=== PATIENT | female | born 1975 | race Caucasian/White ===

== ENCOUNTER → 2023-06-06 16:07 | Outpatient (CLI) | payer BC, OTHER, SELFPAY ==
--- NOTE | ~2023-06-06 | MM_ITS ---
EXAMINATION: MM screening yg BI w jose HISTORY: Screening TECHNIQUE: Craniocaudal and mediolateral oblique 3-D tomosynthesis images were obtained and synthetic 2-D images were generated. CAD analysis was submitted and interpreted. COMPARISON: No prior mammogram is available for comparison at this institution. BREAST PARENCHYMAL COMPOSITION: Not dense: There are scattered areas of fibroglandular density. FINDINGS: There are asymmetries centered in the upper outer quadrant of the right breast. There is no mammographic evidence for malignancy in the left breast. IMPRESSION: 1. Right breast asymmetries. 2. Additional mammographic views and possible breast ultrasound are recommended. BI-RADS Category 0: Incomplete: Needs additional imaging evaluation. Reviewed, dictated and finalized at location A. CHASER IMPRESSION: 1. Right breast asymmetries. 2. Additional mammographic views and possible breast ultrasound are recommended . BI-RADS Category 0: Incomplete: Needs additional imaging evaluation.
== END ==
PROVIDERS: PCP Nurse Practitioner; Visit Provider Nurse Practitioner
DX: Z12.31 Encounter for screening mammogram for malignant neoplasm of breast (principal); R92.8 Other abnormal and inconclusive findings on diagnostic imaging of breast
CPT/HCPCS: 77063; 77067

== ENCOUNTER → 2023-06-15 08:48 | Outpatient (CLI) | payer BC, OTHER, SELFPAY ==
--- NOTE | ~2023-06-15 | MMUS_ITS ---
EXAMINATION: MM diagnostic yg RT w jose, US breast RT complete HISTORY: Follow-up right breast asymmetry TECHNIQUE: Additional 3-D tomosynthesis images of the right breast were performed and synthetic 2-D i mages were generated. CAD analysis was submitted and interpreted. High resolution complete right dustin st ultrasound was performed. COMPARISON: 06/06/2023 BREAST PARENCHYMAL COMPOSITION: Dense: The breasts are heterogeneously dense, which may obscure small masses FINDINGS: MAMMOGRAPHIC FINDINGS: There is an ill-defined irregular shaped mass in the upper outer quadrant of the right breast which i s obscured by fibroglandular tissue. There are no suspicious calcifications. ULTRASOUND: Complete US of all 4 quadrants of the right breast and retroareolar region was reviewed. At 11:00, 5 cm from the nipple there is an irregular shaped hypoechoic mass with posterior shadowing and internal vascularity. The margins are indistinct, although the mass measures approximately 1.5 x 1.3 cm with antiparallel configuration. IMPRESSION: 1. Complex heterogeneous irregular shaped vascular mass of the right breast with posterior shadowing located at 11:00, 5 cm from the nipple corresponding to the mammographic abnormality. 2. Ultrasound-guided right breast biopsy recommended. BI-RADS category 4, suspicious findings. Reviewed, dictated and finalized at location A. JOCKEY IMPRESSION: 1. Complex heterogeneous irregular shaped vascular mass of the right breast wit h posterior shadowing located at 11:00, 5 cm from the nipple corresponding to t he mammographic abnormality. 2. Ultrasound-guided right breast biopsy recommended. BI-RADS category 4, suspicious findings.
== END ==
PROVIDERS: PCP Obstetrics & Gynecology Gynecology; Visit Provider Obstetrics & Gynecology Gynecology
DX: R92.8 Other abnormal and inconclusive findings on diagnostic imaging of breast (principal)
CPT/HCPCS: 76641; 77061; 77065; G0279

== ENCOUNTER 2023-11-06 01:57 | Day surgery (SDC) | payer BC, OTHER, SELFPAY ==
[2023-10-26 08:19] VITALS: BMI 43.5
[2023-11-06 08:12] VITALS: BP 134/96; PULSE 91; RESP 18; TEMP 36.1; O2SAT 100
[2023-11-06] MEDS: LACTATED RINGERS 1,000 ML 150 ML IV CONT (08:26)
--- NOTE | 2023-11-06 08:56 | PM.HPGS ---
History of Present Illness History of Present Illness Consent: Risks, benefits, and alternatives have been discussed and questions answered. Patient agrees to proceed with procedure. Chief complaint: Neoplasm screening Narrative: Chelly Elise is a 47 year old female here for first screening colonoscopy Review of Systems Review of Systems: All systems reviewed & are unremarkable except as noted in HPI and below PMFSH Past Medical History Medical History (Updated 11/06/23 @ 08:57 by Jose Phelan MD) Colon cancer screening Social History Social History Smoking status: Former smoker Tobacco type: cigarettes Substance use: never Substance use type: does not use Living arrangements: with family Spiritual care concerns: No Meds Home Medications and Allergies Home Medications Medication Instructions Recorded Confirmed Type No Home Medications 11/06/23 11/06/23 History Allergies Allergy/AdvReac Type Severity Reaction Status Date / Time No Known Allergies Allergy Verified 11/06/23 08:12 Vital Signs Vital Signs - 24 hr 11/06/23 08:12 Temperature 97 F L Pulse Rate 91 Respiratory Rate 18 Blood Pressure 134/96 H Pulse Oximetry 100 Oxygen Delivery Room Air Exam Const: General: comfortable and no acute distress HENMT: Face/Nose/Sinus: Normal nares present Eyes: General: appearance normal, both eyes and all related structures Neck: Neck: no JVD Resp: Auscultation: clear to auscultation bilaterally Cardio: Rate: regular rate Rhythm: regular rhythm GI: Inspection: non-distended GI Palp: Yes Soft to palpation Skin: General skin exam: normal color Neuro: General: gait normal Speech: normal speech Extrem: General: normal to inspection Psych: Mental Status: mental status grossly normal Assessment and Plan Assessment and plan (1) Colon cancer screening: Code(s): Z12.11 - Encounter for screening for malignant neoplasm of colon Status: Acute Assessment and Plan: colonoscopy
--- NOTE | 2023-11-06 09:02 | P.PNAN_ITS ---
Anes - Eval Pre Procedure Procedure: Operation Date: 11/06/23 09:30 Proposed Procedures p Screening Colonoscopy - Jose Phelan MD Date/Time: 11/06/23 09:02 Pre Op Diagnosis: Neoplasm screening Patient Data Age: 47 Gender: F Height: 1.68 m Weight: 120.4 kg Last Vital Signs Temp 36.1 C L 11/06/23 08:12 Pulse 91 11/06/23 08:12 Resp 18 11/06/23 08:12 BP 134/96 H 11/06/23 08:12 Pulse Ox 100 11/06/23 08:12 O2 Del Method Room Air 11/06/23 08:12 Allergies Allergy/AdvReac Type Severity Reaction Status Date / Time No Known Allergies Allergy Verified 11/06/23 08:12 Home Medications Medication Instructions Recorded Confirmed Type No Home Medications 11/06/23 11/06/23 History Patient hx anesthesia problems: none Family hx anesthesia problems: other Results Review: All pre-operative results and documents have been reviewed as part of the pre- operative evaluation. [facility] Past Medical History Medical History (Updated 11/06/23 @ 09:02 by Raina Da Silva CRNA) Colon cancer screening Morbid obesity with BMI of 40.0-44.9, adult Social History Social History Smoking status: Former smoker Tobacco type: cigarettes Substance use: never Substance use type: does not use Living arrangements: with family Spiritual care concerns: No Exam Day of Procedure 11/06/23 09:02 Patient weight: morbidly obese Heart: regular rate and rhythm Lungs: clear to auscultation Airway: Mallampati scale class II Neurological: alert and oriented
--- NOTE | 2023-11-06 09:03 | P.PNAN_ITS ---
Anes - Initial Pre Proc Eval Procedure: Operation Date: 11/06/23 09:30 Proposed Procedures p Screening Colonoscopy - Jose Phelan MD Date/Time: 11/06/23 09:03 Surgeon: Jose Phelan MD Pre Op Diagnosis: Neoplasm screening Patient Data Age: 47 Gender: F Height: 1.68 m Weight: 120.4 kg Last Vital Signs Temp 36.1 C L 11/06/23 08:12 Pulse 91 11/06/23 08:12 Resp 18 11/06/23 08:12 BP 134/96 H 11/06/23 08:12 Pulse Ox 100 11/06/23 08:12 O2 Del Method Room Air 11/06/23 08:12 Allergies Allergy/AdvReac Type Severity Reaction Status Date / Time No Known Allergies Allergy Verified 11/06/23 08:12 Home Medications Medication Instructions Recorded Confirmed Type No Home Medications 11/06/23 11/06/23 History Patient hx anesthesia problems: none Family hx anesthesia problems: other Results Review: All pre-operative results and documents have been reviewed as part of the pre-operative evaluation. [facility] Past Medical History Medical History (Updated 11/06/23 @ 09:02 by Raina Da Silva CRNA) Colon cancer screening Morbid obesity with BMI of 40.0-44.9, adult Social History Social History Smoking status: Former smoker Tobacco type: cigarettes Substance use: never Substance use type: does not use Living arrangements: with family Spiritual care concerns: No Anes - Eval Final PreProcedure Day of Procedure 11/06/23 09:03 ASA classification: III Emergent: no Anesthetic plan: proceed Anesthesia type and monitoring: general and standard monitoring Results Review: All pre-operative results and documents have been reviewed as part of the pre- operative evaluation. Informed Consent: The patient's anesthetic plan and its attendant risks and benefits were discussed with the patient/family/POA. Questions were solicited and answers provided to the satisfaction of the patient/family/POA.
[2023-11-06 09:24] VITALS: BP 149/79; PULSE 107; RESP 21; O2SAT 96
[2023-11-06 09:31] VITALS: PULSE 85
[2023-11-06] MEDS: METOPROLOL TARTRATE INJ 5 MG/5 ML VIAL 2.5 MG IV PUSH (09:31)
[2023-11-06 09:34] VITALS: BP 130/81; PULSE 74; RESP 15; O2SAT 99
[2023-11-06 09:44] VITALS: BP 133/92; PULSE 66; RESP 16; O2SAT 100
== END 2023-11-06 10:13 | disposition home or self-care (01) ==
PROVIDERS: PCP Clinical Nurse Specialist; Referring Provider Obstetrics & Gynecology Gynecology; Visit Provider Internal Medicine Gastroenterology
PROC: 0DJD8ZZ Inspection of Lower Intestinal Tract, Via Natural or Artificial Opening Endoscopic (ICD-10-PCS; CPT 45378; principal; 2023-11-06 09:30)
DX: Z12.11 Encounter for screening for malignant neoplasm of colon (principal); K64.8 Other hemorrhoids; Z87.891 Personal history of nicotine dependence; E66.01 Morbid (severe) obesity due to excess calories; Z68.41 Body mass index [BMI] 40.0-44.9, adult
CPT/HCPCS: 45378; J2704; J7120

== ENCOUNTER 2023-12-01 06:45 | Outpatient (CLI) | payer BC, OTHER, SELFPAY ==
[2023-12-01 07:02] LABS: Basophils Percent Auto 0.5 % (0.2-1.2); Eosinophils Absolute Auto 0.2 K/mm3 (0-0.3); Eosinophils Percent Auto 4.2 % (0-4.4); Hematocrit 42.7 % (37.0-47.0); Hemoglobin 14.5 g/dL (12.0-15.0); Immature Granulocyte Absolute 0.01 K/mm3 (0.00-0.031); Immature Granulocyte Percent A 0.2 % (0-0.5); Lymphocytes Absolute Auto 2.16 K/mm3 (0.9-3.2); Lymphocytes Percent Auto 39.6 % (18.3-44.2); Mean Corpuscular Volume 85.4 fl (80-100); Mean Platelet Volume 10.2 fl (7.4-10.4); Monocytes Absolute Auto 0.4 K/mm3 (0.1-0.6); Neutrophils Absolute Auto 2.7 K/mm3 (1.3-6.7); Neutrophils Percent Auto 48.5 % (45.5-73.1); Platelet Count Result 224 k/mm3 (150-375); Red Cell Distribution Width 13.1 % (11.5-14.5); White Blood Count 5.5 K/mm3 (4.5-10.0)
[2023-12-01 07:08] LABS: Hemoglobin A1C 5.3 % (<5.7)
[2023-12-01 07:11] LABS: Alanine Aminotransferase 14 U/L (6-35); Albumin Level 4.4 g/dL (3.5-5.1); Alkaline Phosphatase 65 U/L (38-126); Anion Gap 8 mmol/L (4-12); Aspartate Amino Transferase 23 U/L (14-36); Bilirubin,Total 0.4 mg/dL (0.2-1.3); Blood Urea Nitrogen 9 mg/dL (7-17); Calcium 9.3 mg/dL (8.4-10.2); Carbon Dioxide 28 mmol/L (22-30); Chloride 102 mmol/L (98-107); Cholesterol 179 mg/dL (0-200); Estimated Glomerular Filt Rate > 60; Glucose 110 mg/dL (65-110); HDL Direct 43 mg/dL; Potassium 3.9 mmol/L (3.4-5.0); Sodium 138 mmol/L (137-145); Triglycerides 89 mg/dL (<150)
[2023-12-01 07:22] LABS: LDL Cholesterol Direct 109 mg/dL
[2023-12-01 09:56] LABS: Vitamin D 25 Hydroxy 26.5 ng/mL
== END 2023-12-01 06:46 | disposition home or self-care (01) ==
PROVIDERS: PCP Clinical Nurse Specialist; Visit Provider Clinical Nurse Specialist
DX: R73.9 Hyperglycemia, unspecified (principal); E55.9 Vitamin D deficiency, unspecified; Z13.220 Encounter for screening for lipoid disorders; Z13.228 Encounter for screening for other metabolic disorders
CPT/HCPCS: 36415; 80053; 80061; 82306; 83036; 85025

== ENCOUNTER 2023-12-10 08:48 | Outpatient (CLI) | payer BC, OTHER, SELFPAY ==
--- NOTE | ~2023-12-10 | XR_ITS ---
EXAMINATION: XR lg joint inject/asp w image DATE: 12/10/2023 09:39 INDICATION: Adhesive capsulitis TECHNIQUE: A time-out was performed to verify the patient's name, date of , and procedure to b e performed. The procedure including the risks, benefits, and alternatives was discussed with the pat ient. Risks discussed included bleeding and infection. The patient understood the risks and agreed to proceed. The skin overlying the rotator cuff interval the right glenohumeral joint was prepped and draped in usual sterile fashion. Anesthetic was administered with 1% lidocaine subcutaneously. A 22 G needle was advanced under fluoroscopic guidance into the joint. Injection of 1 mL of Omnipaque 24 0 confirmed intra-articular position of the needle. Subsequently, injectate consisting of 5 mm a 4:1 mixture of 1% lidocaine: 80 mg/mL Depo-Medrol for a total dose of 80 mg Depo-Medrol was instilled. W ashout of contrast was seen confirming intra-articular administration. The needle was removed and the entry site was cleaned and dressed. There were no immediate complications. Fluoroscopy exposure eri e was 0.3 minutes. The total number of images was 2. FINDINGS: Real-time fluoroscopy demonstrates the needle in the right glenohumeral joint. Patient's pa in prior to procedure:11/23. Patient's pain following the procedure: 05/26. IMPRESSION: 1. Successful right glenoid humeral joint injection of local anesthetic and steroid with decrease in the patient's presenting pain. Reviewed, dictated and finalized at location A. IMPRESSION: 1. Successful right glenoid humeral joint injection of local anesthetic and rishi roid with decrease in the patient's presenting pain.
== END 2023-12-10 08:49 | disposition home or self-care (01) ==
LOC: ANHIMG 08:52
PROVIDERS: PCP Clinical Nurse Specialist; Visit Provider Physician Assistant Surgical
DX: M75.01 Adhesive capsulitis of right shoulder (principal)
CPT/HCPCS: 20610; 77002; J1010; Q9966

== ENCOUNTER 2024-01-24 12:30 | Outpatient (RCR) | payer BC, OTHER, SELFPAY ==
--- NOTE | 2023-12-19 12:01 | OPREHPOC ---
Outpatient Therapy Plan of Care This is a Multidisciplinary Plan of Care that may contain components documented by all disciplines (PT, OT, and ST.) PT Problem 1 PT Problem #1 Knowledge Deficit PT Goal 1 Goal / Goal Update *indep with HEP Target Visit 8 PT Problem 2 PT Problem #2 Pain PT Goal 1 Goal / Goal Update 1* pain rating at worst of 4/10 2* report times of NO pain Target Visit 8 PT Problem 3 PT Problem #3 Impaired Flexibility PT Goal 1 Goal / Goal Update active R shoulder 1* standing IR- reach behind back, palm to above waist 2* supine ER with shoulder abduction to 90', 40' Target Visit 8 PT Problem 4 PT Problem #4 Impaired Strength PT Goal 1 Goal / Goal Update increase strength of R shoulder to improve use of R UE with home and self care activities: 1* flexion to 150' with 3# hand wt x 5 reps 2* abduction to 145' with 2# hand wt x 5 reps Target Visit 8
--- NOTE | 2023-12-19 12:02 | PTOPEVAL1 ---
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 She is R hand dominant and about 1 year ago had same with her L shoulder. Quick DASH self assessment rating of 59% limitation in activity level. With the evaluation- she has decreased ROM and strength of all shoulder motions. Skilled PT services are indicated for modalities to decrease pain and spasms; therapeutic exercises to increase ROM and strength of R shoulder with education for HEP and pain control. Plan of Care Interventions Electrical Stimulation,Hot Pack/Cold Pack,Manual Therapy,Neuro Re-education,Patient Education,Therapeutic Activities,Therapeutic Exercise,Ultrasound,Other Other Interventions taping PT Services Indicated Yes Treatment Frequency and 2x/wk for 8 visits Duration These treatments will address the objective and functional deficits as defined above. The patient will be advanced safely and appropriately in order for the patient to progress towards his/her prior level of function. Additional exercises will be introduced and as well as a comprehensive home exercise
--- NOTE | 2024-01-24 13:05 | PTOPDC ---
Assessment and note entered by Eun Kilgore, PT Discharge Report Assessment Status Discharge ICD-10 Condition Codes (PT) M25.511,Weakness R53.1 Other ICD-10 Condition Codes ( M75.0 adhesive capsulitis R shoulder PT) Onset September 2023 Subjective Information am doing great; doing everything like I could do before; doing yoga; Reported Pain Level Pain Score Self Report Additional Pain Score Comments no pain in the past week Assessment PT Clinical Summary Chelly has received 7 PT sessions. Compared to the initial evaluation: she has improved in all areas: no longer have any pain in shoulder; self assessment with Quick DASH is 0% limitation in activity level; full ROM of R shoulder, without pain; using 5# hand weight for strengthening; bilateral UE box lift waist/floor 30# with good body mechanics. Education completed for HEP and posture. The goals were achieved. Discharge PT services. She is to continue with her HEP. Plan of Care PT Services Indicated No
== END 2024-01-24 13:42 | disposition home or self-care (01) ==
LOC: ANHPT 12:30
PROVIDERS: PCP Clinical Nurse Specialist; Visit Provider Physician Assistant Surgical
DX: M75.01 Adhesive capsulitis of right shoulder (principal)
CPT/HCPCS: 97014; 97110; 97140; 97161; G0283

== ENCOUNTER 2024-05-08 17:16 | Emergency (ER) | payer OTHER, SELFPAY ==
--- NOTE | ~2024-05-08 | CT_ITS ---
EXAMINATION: CTA chest PE abdomen pel DATE: 05/08/2024 23:33 SWINE NUTRITIONIST INDICATION: Midsternal chest pain for 2 weeks with epigastric pain TECHNIQUE: Computed tomographic angiography (CTA) of the chest was performed, along with multiple con tiguous axial images of the abdomen and pelvis with 100 mL Omnipaque-350 intravenous contrast. The do se-length product was 2436.43 mGy-cm. Maximum intensity projection 3D-reconstructions of the aorta an d other arteries were constructed by the technologist on a separate workstation. FINDINGS/OBSERVATIONS: PULMONARY ARTERIES: No filling defect is identified within the main or proximal pulmonary artery. The main pulmonary artery is not enlarged. THORACIC AORTA: No aneurysmal dilatation or dissection is present. The great vessels are intact LUNGS: The lungs are clear. MEDIASTINUM: No morphologically suspicious or pathologically enlarged lymph nodes are identified with in the mediastinum or bilateral axilla. BONES OF THE CHEST: No acute fracture. No significant degenerative disease. No lytic or blastic lesions. HEART: The heart is of normal size, without pericardial effusion. LIVER: The liver enhances homogeneously and is enlarged measuring 21 cm in longitudinal dimension. GALLBLADDER AND BILIARY SYSTEM: The gallbladder is surgically absent. PANCREAS: The pancreas enhances homogeneously without ductal dilatation. SPLEEN: The spleen enhances homogeneously and is not enlarged measuring 8 cm in longitudinal dimension. KIDNEYS: The bilateral kidneys enhance symmetrically without hydronephrosis or renal calculi. ADRENAL GLANDS: Unremarkable. GASTROINTESTINAL TRACT: Colonic diverticulosis without surrounding inflammatory change. APPENDIX: The appendix is not definitively visualized. However, no pericecal inflammatory change is identified suggest the presence of acute appendicitis. VASCULATURE: Unremarkable. LYMPH NODES: No pathologically enlarged or morphologically suspicious lymph nodes within the retroperitoneum or at the root of the mesentery. PELVIC STRUCTURES: The bladder is minimally distended, and otherwise unremarkable. The uterus is anteverted and anteflexed. Bilateral ESSURE devices are present BODY WALL AND MUSCULOSKELETAL: Trace degenerative disease at the level of L5/S1 with osteophyte formation, disc space narrowing and vacuum phenomena. IMPRESSION: No pulmonary embolus. No aortic dissection. The lungs are clear. No acute intra-abdominal pathology, as detailed above. Reviewed, dictated and finalized at location A. E NUTRITIONIST
--- NOTE | ~2024-05-08 | XR_ITS ---
CHEST RADIOGRAPH, PA AND LATERAL CLINICAL HISTORY: CP . COMPARISON: None available TECHNIQUE: PA and lateral views of the chest. FINDINGS The cardiomediastinal silhouette is unremarkable. The lungs are clear. Visualized osseous structures and soft tissues are unremarkable. IMPRESSION: No focal infiltrate or effusion. Reviewed, dictated and finalized at location A. ER CREW WORKER
--- NOTE | 2024-05-08 17:18 | ECG_ITS ---
Test Date: 2024-05-08 17:22:28 Measurements Intervals [place] Rate: 65 P: 31 ME: 198 QRS: 15 QRSD: 85 T: 29 QT: 392 QTc: 408 Interpretive Statements SINUS RHYTHM No previous ECG available for comparison Electronically Signed On 05-09-2024 11:52:22 NIGHT CLERK AUDITOR by Marixa Rogers
[2024-05-08 17:31] VITALS: BP 150/86; PULSE 67; RESP 14; TEMP 36.7; O2SAT 100
--- NOTE | 2024-05-08 17:33 | ED_ITS ---
HPI - Chest Pain General Chief Complaint: Chest Pain <Staci Dennison APRN - Last Filed: 05/08/24 17:45> Stated Complaint: chest pain for couple weeks <Staci Dennison APRN - Last Filed: 05/08/24 17:45> Time Seen by Provider: 05/08/24 17:20 <Staci Dennison APRN - Last Filed: 05/08/24 17:45> Focused HPI: Patient is a 48-year-old female who presents to the ER with complaints of rib cage pain. She reports the pain starts near her sternum and radiates to both sides of her chest. Patient also endorses pain in her back. She reports the pain started about 2-3 weeks ago and is intermittent. He episode the pain lasts approximately 20-30 minute and have been coming more frequent over the last couple of days. Patient denies any wheezing, cough, congestion or gastric reflux. She denies any shortness of breath or lower extremity edema. She denies any other medical history related 6 ER visit. GENERAL: Well-appearing, well-nourished, and in no acute distress. HEAD: Normocephalic, atraumatic. CHEST: Clear to auscultation. ?No respiratory distress. HEART: Regular rate and rhythm.? NEURO: ?Alert and oriented x3. Patient screened in triage and initial orders placed.? ?Additional care and disposition to be based upon?diagnostic testing and treatment. <Staci Dennison APRN - Last Filed: 05/08/24 17:45> History of Present Illness HPI narrative: Patient is a 48-year-old female who presents emergency department with chief complaint of chest discomfort. Patient reports for the last 2-3 weeks she has been having intermittent discomfort in her chest that radiates to her back. The patient does report that she ate spicy Jumbo high last night and reports the pain does feel similar to whenever she had her gallbladder removed in the past. <Willian Haque MD - Last Filed: 05/08/24 21:44> Related Data Allergies/Adverse Reactions: Allergies Allergy/AdvReac Type Severity Reaction Status Date / Time No Known Allergies Allergy Verified 05/08/24 17:17 <Staci Dennison APRN - Last Filed: 05/08/24 17:45> Review of Systems 2 Review of Systems: A 10 system review of systems was completed on the patient and is negative except for what is stated in the HPI. Nursing and ancillary documentation was reviewed. <Willian Haque MD - Last Filed: 05/08/24 21:44> [facility] Past Medical History Medical History: Medical History Morbid obesity with BMI of 40.0-44.9, adult Colon cancer screening <Staci Dennison AUTOMOTIVE COLLISION ESTIMATOR - Last Filed: 05/08/24 17:45> Family History Family History: Family History Father No problems noted. Mother No problems noted. Sibling No problems noted. <Staci Dennison AUTOMOTIVE COLLISION ESTIMATOR - Last Filed: 05/08/24 17:45> Social History Social History: Social History Smoking status: Former smoker Tobacco type: cigarettes Second hand tobacco smoke exposure: No Alcohol intake: current Alcohol use details: Occasionally Substance use: never Substance use type: does not use Do You Feel Safe in your Home?: Yes Lack of Transportation: No Lack of Food: Never True Current Housing: I Have Housing Concerned About Future Housing: No Difficulty Paying Gas/Electric Bills: Decline to Answer Difficulty Paying for Meds: No Currently Unemployed: No Education: High School Diploma/GED Difficulty w/ Childcare or Family Care: No Living arrangements: with family Occupation/Education: occupation 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 HEAD: Normocephalic, atraumatic. EYES: PERRLA and EOMI. ENT: Nares clear, no rhinorrhea or epistaxis. Mucous membranes moist. NECK: Supple. CHEST: Clear to auscultation. No respiratory distress. HEART: Regular rate and rhythm. No murmur heard. Normal peripheral pulses. ABDOMEN: Soft, nontender, nondistended, normal active bowel sounds. EXTREMITIES: Normal range of motion. No edema. SKIN: Warm, dry, no rash. NEURO: No focal deficits. Alert and oriented x3. PSYCH: Normal mood and affect. <Willian Haque MD - Last Filed: 05/08/24 21:44> Course CATALYTIC CONVERTER OPERATOR/PA Physician Supervision For this patient encounter, I reviewed the CATALYTIC CONVERTER OPERATOR or PA documentation, treatment plan, and medical decision making and had klly-[id number] time with this patient. I performed all aspects of the MDM as documented. <Brittney Roth MD - Last Filed: 05/09/24 00:19> Vital Signs Vital signs: Vital Signs Temperature 98.0 F 05/08/24 17:31 Pulse Rate 67 05/08/24 17:31 Respiratory Rate 14 05/08/24 17:31 Blood Pressure 150/86 H 05/08/24 17:31 Pulse Oximetry 100 05/08/24 17:31 Oxygen Delivery Room Air 05/08/24 17:31 Temperature 98.0 F 05/08/24 17:31 Pulse Rate 76 05/08/24 23:15 Respiratory Rate 17 05/08/24 23:15 Blood Pressure 111/73 05/08/24 23:15 Pulse Oximetry 98 05/08/24 23:15 Oxygen Delivery Room Air 05/08/24 21:00 <Staci Dennison, NEGIN - Last Filed: 05/08/24 17:45> Vital Signs Temperature 98.0 F 05/08/24 17:31 Pulse Rate 67 05/08/24 17:31 Respiratory Rate 14 05/08/24 17:31 Blood Pressure 150/86 H 05/08/24 17:31 Pulse Oximetry 100 05/08/24 17:31 Oxygen Delivery Room Air 05/08/24 17:31 Temperature 98.0 F 05/08/24 17:31 Pulse Rate 76 05/08/24 23:15 Respiratory Rate 17 05/08/24 23:15 Blood Pressure 111/73 05/08/24 23:15 Pulse Oximetry 98 05/08/24 23:15 Oxygen Delivery Room Air 05/08/24 21:00 <Willian Haque MD - Last Filed: 05/08/24 21:44> Vital Signs Temperature 98.0 F 05/08/24 17:31 Pulse Rate 67 05/08/24 17:31 Respiratory Rate 14 05/08/24 17:31 Blood Pressure 150/86 H 05/08/24 17:31 Pulse Oximetry 100 05/08/24 17:31 Oxygen Delivery Room Air 05/08/24 17:31 Temperature 98.0 F 05/08/24 17:31 Pulse Rate 76 05/08/24 23:15 Respiratory Rate 17 05/08/24 23:15 Blood Pressure 111/73 05/08/24 23:15 Pulse Oximetry 98 05/08/24 23:15 Oxygen Delivery Room Air 05/08/24 21:00 <Brittney Roth MD - Last Filed: 05/09/24 00:19> MDM - Chest Pain MDM Narrative Medical decision making narrative: Differential diagnosis includes electrolyte abnormality, ACS, gastroesophageal reflux disease, pancreatitis, Chest x-ray showed no acute abnormality EKG showed no acute ischemic changes initial troponin was -3 hour repeat troponin was negative The patient will be treated with a GI cocktail and Protonix plan will be to discharge the patient home on Protonix and have the patient follow-up with her primary care provider as she may need further testing as an outpatient. < Willian Haque MD - Last Filed: 05/08/24 21:44> Differential diagnosis includes electrolyte abnormality, ACS, gastroesophageal reflux disease, pancreatitis, Chest x-ray showed no acute abnormality EKG showed no acute ischemic changes initial troponin was -3 hour repeat troponin was negative The patient will be treated with a GI cocktail and Protonix plan will be to discharge the patient home on Protonix and have the patient follow-up with her primary care provider as she may need further testing as an outpatient. Ira: Patient was signed out to me pending CT angio chest PE protocol. CT was obtained and independently interpreted by me revealing: No pulmonary embolus. No aortic dissection. The lungs are clear. No acute intra-abdominal pathology, as detailed above. Patient was informed of these findings at bedside. Patient is frustrated not only due to long ED stay but that her pain is not controlled. I did inform the patient that multiple pain medications were ordered and patient states that she did not receive the morphine because she refused it and she did not want something not strong. I did inform the patient that I could order her some Toradol and patient is agreeable to this. 15 mg of IV Toradol was ordered at this time. Patient's who is present at bedside is incredibly rude and using foul language to talk to me despite me apologizing for the long wait which is beyond my control. Patient was instructed to follow-up with her primary care physician and informed that she will be provided with a Cardiology referral to follow-up with. Instructed to return to the ED if any new or worsening symptoms develop. <Brittney Roth MD - Last Filed: 05/09/24 00:19> Lab Data Result diagrams: 05/08/24 17:27 05/08/24 17:26 <Staci Dennison APRN - Last Filed: 05/08/24 17:45> Labs: Lab Results 05/08/24 05/08/24 05/08/24 Range/Units 17:26 17:27 20:53 WBC 7.3 (4.5-10.0) K/mm3 RBC 4.48 (4.2-5.4) M/mm3 Hgb 13.2 (12.0-15.0) g/dL Hct 39.6 (37.0-47.0) % MCV 88.4 (80-100) fl MCH 29.5 (26-34) pg MCHC 33.3 (32-36) g/dl RDW 13.2 (11.5-14.5) % Plt Count 234 (150-375) k/mm3 MPV 10.0 (7.4-10.4) fl Immature Gran % (Auto) 0.3 (0-0.5) % Neut % (Auto) 58.1 (45.5-73.1) % Lymph % (Auto) 32.9 (18.3-44.2) % White % (Auto) 4.4 (2.6-8.5) % Eos % (Auto) 3.3 (0-4.4) % Baso % (Auto) 1.0 (0.2-1.2) % Lymph # (Auto) 2.41 (0.9-3.2) K/mm3 White # (Auto) 0.3 (0.1-0.6) K/mm3 Eos # (Auto) 0.2 (0-0.3) K/mm3 Baso # (Auto) 0.1 (0.0-0.1) K/mm3 Abs Immat Gran (auto) 0.02 (0.00-0.031) K/mm3 Absolute Neuts (auto) 4.3 (1.3-6.7) K/mm3 Absolute Nucleated RBC 0.000 (0.0-0.012) K/mm3 Nucleated RBC % 0.0 (0.0-0.2) % PT 13.9 (11.1-14.7) Seconds INR 1.0 APTT 29.0 (22.3-36.8) Seconds Sodium 136 L (137-145) mmol/L Potassium 4.0 (3.4-5.0) mmol/L Chloride 103 (98-107) mmol/L Carbon Dioxide 25 (22-30) mmol/L Anion Gap 8 (4-12) mmol/L BUN 14 D (7-17) mg/dL Creatinine 0.59 L (0.7-1.0) mg/dL Estim Creat Clear Calc 124 ml/min Estimated GFR > 60 (59 - ) Glucose 104 (65-110) mg/dL Calcium 8.6 (8.4-10.2) mg/dL Total Bilirubin 0.5 (0.2-1.3) mg/dL AST 21 (14-36) U/L ALT 19 (6-35) U/L Alkaline Phosphatase 61 (38-126) U/L Troponin I < 0.012 < 0.012 (0.000-0.034) ng/mL Total Protein 7.0 (6.3-8.2) g/dL Albumin 3.8 (3.5-5.1) g/dL Lipase 57 (23-300) U/L POC Urine HCG, Qual (Negative) 05/08/24 Range/Units 22:13 WBC (4.5-10.0) K/mm3 RBC (4.2-5.4) M/mm3 Hgb (12.0-15.0) g/dL Hct (37.0-47.0) % MCV (80-100) fl MCH (26-34) pg MCHC (32-36) g/dl RDW (11.5-14.5) % Plt Count (150-375) k/mm3 MPV (7.4-10.4) fl Immature Gran % (Auto) (0-0.5) % Neut % (Auto) (45.5-73.1) % Lymph % (Auto) (18.3-44.2) % White % (Auto) (2.6-8.5) % Eos % (Auto) (0-4.4) % Baso % (Auto) (0.2-1.2) % Lymph # (Auto) (0.9-3.2) K/mm3 White # (Auto) (0.1-0.6) K/mm3 Eos # (Auto) (0-0.3) K/mm3 Baso # (Auto) (0.0-0.1) K/mm3 Abs Immat Gran (auto) (0.00-0.031) K/mm3 Absolute Neuts (auto) (1.3-6.7) K/mm3 Absolute Nucleated RBC (0.0-0.012) K/mm3 Nucleated RBC % (0.0-0.2) % PT (11.1-14.7) Seconds INR APTT (22.3-36.8) Seconds Sodium (137-145) mmol/L Potassium (3.4-5.0) mmol/L Chloride (98-107) mmol/L Carbon Dioxide (22-30) mmol/L Anion Gap (4-12) mmol/L BUN (7-17) mg/dL Creatinine (0.7-1.0) mg/dL Estim Creat Clear Calc ml/min Estimated GFR (59 - ) Glucose (65-110) mg/dL Calcium (8.4-10.2) mg/dL Total Bilirubin (0.2-1.3) mg/dL AST (14-36) U/L ALT (6-35) U/L Alkaline Phosphatase (38-126) U/L Troponin I (0.000-0.034) ng/mL Total Protein (6.3-8.2) g/dL Albumin (3.5-5.1) g/dL Lipase (23-300) U/L POC Urine HCG, Qual Negative (Negative) <Staci Dennison, AUTOMOTIVE COLLISION ESTIMATOR - Last Filed: 05/08/24 17:45> Lab Results 05/08/24 05/08/24 05/08/24 Range/Units 17:26 17:27 20:53 WBC 7.3 (4.5-10.0) K/mm3 RBC 4.48 (4.2-5.4) M/mm3 Hgb 13.2 (12.0-15.0) g/dL Hct 39.6 (37.0-47.0) % MCV 88.4 (80-100) fl MCH 29.5 (26-34) pg MCHC 33.3 (32-36) g/dl RDW 13.2 (11.5-14.5) % Plt Count 234 (150-375) k/mm3 MPV 10.0 (7.4-10.4) fl Immature Gran % (Auto) 0.3 (0-0.5) % Neut % (Auto) 58.1 (45.5-73.1) % Lymph % (Auto) 32.9 (18.3-44.2) % White % (Auto) 4.4 (2.6-8.5) % Eos % (Auto) 3.3 (0-4.4) % Baso % (Auto) 1.0 (0.2-1.2) % Lymph # (Auto) 2.41 (0.9-3.2) K/mm3 White # (Auto) 0.3 (0.1-0.6) K/mm3 Eos # (Auto) 0.2 (0-0.3) K/mm3 Baso # (Auto) 0.1 (0.0-0.1) K/mm3 Abs Immat Gran (auto) 0.02 (0.00-0.031) K/mm3 Absolute Neuts (auto) 4.3 (1.3-6.7) K/mm3 Absolute Nucleated RBC 0.000 (0.0-0.012) K/mm3 Nucleated RBC % 0.0 (0.0-0.2) % PT 13.9 (11.1-14.7) Seconds INR 1.0 APTT 29.0 (22.3-36.8) Seconds Sodium 136 L (137-145) mmol/L Potassium 4.0 (3.4-5.0) mmol/L Chloride 103 (98-107) mmol/L Carbon Dioxide 25 (22-30) mmol/L Anion Gap 8 (4-12) mmol/L BUN 14 D (7-17) mg/dL Creatinine 0.59 L (0.7-1.0) mg/dL Estim Creat Clear Calc 124 ml/min Estimated GFR > 60 (59 - ) Glucose 104 (65-110) mg/dL Calcium 8.6 (8.4-10.2) mg/dL Total Bilirubin 0.5 (0.2-1.3) mg/dL AST 21 (14-36) U/L ALT 19 (6-35) U/L Alkaline Phosphatase 61 (38-126) U/L Troponin I < 0.012 < 0.012 (0.000-0.034) ng/mL Total Protein 7.0 (6.3-8.2) g/dL Albumin 3.8 (3.5-5.1) g/dL Lipase 57 (23-300) U/L POC Urine HCG, Qual (Negative) 05/08/24 Range/Units 22:13 WBC (4.5-10.0) K/mm3 RBC (4.2-5.4) M/mm3 Hgb (12.0-15.0) g/dL Hct (37.0-47.0) % MCV (80-100) fl MCH (26-34) pg MCHC (32-36) g/dl RDW (11.5-14.5) % Plt Count (150-375) k/mm3 MPV (7.4-10.4) fl Immature Gran % (Auto) (0-0.5) % Neut % (Auto) (45.5-73.1) % Lymph % (Auto) (18.3-44.2) % White % (Auto) (2.6-8.5) % Eos % (Auto) (0-4.4) % Baso % (Auto) (0.2-1.2) % Lymph # (Auto) (0.9-3.2) K/mm3 White # (Auto) (0.1-0.6) K/mm3 Eos # (Auto) (0-0.3) K/mm3 Baso # (Auto) (0.0-0.1) K/mm3 Abs Immat Gran (auto) (0.00-0.031) K/mm3 Absolute Neuts (auto) (1.3-6.7) K/mm3 Absolute Nucleated RBC (0.0-0.012) K/mm3 Nucleated RBC % (0.0-0.2) % PT (11.1-14.7) Seconds INR APTT (22.3-36.8) Seconds Sodium (137-145) mmol/L Potassium (3.4-5.0) mmol/L Chloride (98-107) mmol/L Carbon Dioxide (22-30) mmol/L Anion Gap (4-12) mmol/L BUN (7-17) mg/dL Creatinine (0.7-1.0) mg/dL Estim Creat Clear Calc ml/min Estimated GFR (59 - ) Glucose (65-110) mg/dL Calcium (8.4-10.2) mg/dL Total Bilirubin (0.2-1.3) mg/dL AST (14-36) U/L ALT (6-35) U/L Alkaline Phosphatase (38-126) U/L Troponin I (0.000-0.034) ng/mL Total Protein (6.3-8.2) g/dL Albumin (3.5-5.1) g/dL Lipase (23-300) U/L POC Urine HCG, Qual Negative (Negative) <Willian Haque MD - Last Filed: 05/08/24 21:44> Lab Results 05/08/24 05/08/24 05/08/24 Range/Units 17:26 17:27 20:53 WBC 7.3 (4.5-10.0) K/mm3 RBC 4.48 (4.2-5.4) M/mm3 Hgb 13.2 (12.0-15.0) g/dL Hct 39.6 (37.0-47.0) % MCV 88.4 (80-100) fl MCH 29.5 (26-34) pg MCHC 33.3 (32-36) g/dl RDW 13.2 (11.5-14.5) % Plt Count 234 (150-375) k/mm3 MPV 10.0 (7.4-10.4) fl Immature Gran % (Auto) 0.3 (0-0.5) % Neut % (Auto) 58.1 (45.5-73.1) % Lymph % (Auto) 32.9 (18.3-44.2) % White % (Auto) 4.4 (2.6-8.5) % Eos % (Auto) 3.3 (0-4.4) % Baso % (Auto) 1.0 (0.2-1.2) % Lymph # (Auto) 2.41 (0.9-3.2) K/mm3 White # (Auto) 0.3 (0.1-0.6) K/mm3 Eos # (Auto) 0.2 (0-0.3) K/mm3 Baso # (Auto) 0.1 (0.0-0.1) K/mm3 Abs Immat Gran (auto) 0.02 (0.00-0.031) K/mm3 Absolute Neuts (auto) 4.3 (1.3-6.7) K/mm3 Absolute Nucleated RBC 0.000 (0.0-0.012) K/mm3 Nucleated RBC % 0.0 (0.0-0.2) % PT 13.9 (11.1-14.7) Seconds INR 1.0 APTT 29.0 (22.3-36.8) Seconds Sodium 136 L (137-145) mmol/L Potassium 4.0 (3.4-5.0) mmol/L Chloride 103 (98-107) mmol/L Carbon Dioxide 25 (22-30) mmol/L Anion Gap 8 (4-12) mmol/L BUN 14 D (7-17) mg/dL Creatinine 0.59 L (0.7-1.0) mg/dL Estim Creat Clear Calc 124 ml/min Estimated GFR > 60 (59 - ) Glucose 104 (65-110) mg/dL Calcium 8.6 (8.4-10.2) mg/dL Total Bilirubin 0.5 (0.2-1.3) mg/dL AST 21 (14-36) U/L ALT 19 (6-35) U/L Alkaline Phosphatase 61 (38-126) U/L Troponin I < 0.012 < 0.012 (0.000-0.034) ng/mL Total Protein 7.0 (6.3-8.2) g/dL Albumin 3.8 (3.5-5.1) g/dL Lipase 57 (23-300) U/L POC Urine HCG, Qual (Negative) 05/08/24 Range/Units 22:13 WBC (4.5-10.0) K/mm3 RBC (4.2-5.4) M/mm3 Hgb (12.0-15.0) g/dL Hct (37.0-47.0) % MCV (80-100) fl MCH (26-34) pg MCHC (32-36) g/dl RDW (11.5-14.5) % Plt Count (150-375) k/mm3 MPV (7.4-10.4) fl Immature Gran % (Auto) (0-0.5) % Neut % (Auto) (45.5-73.1) % Lymph % (Auto) (18.3-44.2) % White % (Auto) (2.6-8.5) % Eos % (Auto) (0-4.4) % Baso % (Auto) (0.2-1.2) % Lymph # (Auto) (0.9-3.2) K/mm3 White # (Auto) (0.1-0.6) K/mm3 Eos # (Auto) (0-0.3) K/mm3 Baso # (Auto) (0.0-0.1) K/mm3 Abs Immat Gran (auto) (0.00-0.031) K/mm3 Absolute Neuts (auto) (1.3-6.7) K/mm3 Absolute Nucleated RBC (0.0-0.012) K/mm3 Nucleated RBC % (0.0-0.2) % PT (11.1-14.7) Seconds INR APTT (22.3-36.8) Seconds Sodium (137-145) mmol/L Potassium (3.4-5.0) mmol/L Chloride (98-107) mmol/L Carbon Dioxide (22-30) mmol/L Anion Gap (4-12) mmol/L BUN (7-17) mg/dL Creatinine (0.7-1.0) mg/dL Estim Creat Clear Calc ml/min Estimated GFR (59 - ) Glucose (65-110) mg/dL Calcium (8.4-10.2) mg/dL Total Bilirubin (0.2-1.3) mg/dL AST (14-36) U/L ALT (6-35) U/L Alkaline Phosphatase (38-126) U/L Troponin I (0.000-0.034) ng/mL Total Protein (6.3-8.2) g/dL Albumin (3.5-5.1) g/dL Lipase (23-300) U/L POC Urine HCG, Qual Negative (Negative) <Brittney Roth MD - Last Filed: 05/09/24 00:19> Discharge Plan Discharge Clinical Impression: Atypical chest pain <Staci Dennison APRN - Last Filed: 05/08/24 17:45> Patient Disposition: Home, Self-Care <Staci Dennison APRN - Last Filed: 05/08/24 17:45> Condition: Stable <Staci Dennison APRN - Last Filed: 05/08/24 17:45> Instructions: Antibiotic Form, Chest Pain (ED) <Staci Dennison APRN - Last Filed: 05/08/24 17:45> Patient Language: Croatian <Staci Dennison APRN - Last Filed: 05/08/24 17:45> Prescriptions: New pantoprazole [Protonix] 40 mg tablet,delayed release (DR/EC) 40 mg PO HS 28 Days Qty: 28 0RF <Staci Dennison APRN - Last Filed: 05/08/24 17:45> Follow-up/Referrals: Cali Starks MD [Physician] - 3 Days Cherri Regalado, TRASHMAN-C [Primary Care Provider] - <Staci Dennison APRN - Last Filed: 05/08/24 17:45> Time of Disposition: 21:44 <Staci Dennison APRN - Last Filed: 05/08/24 17:45> 21:44 <Willian Haque MD - Last Filed: 05/08/24 21:44> 21:44 <Brittney Roth MD - Last Filed: 05/09/24 00:19>
[2024-05-08 17:36] LABS: Basophils Absolute Auto 0.1 K/mm3 (0.0-0.1); Eosinophils Absolute Auto 0.2 K/mm3 (0-0.3); Eosinophils Percent Auto 3.3 % (0-4.4); Hematocrit 39.6 % (37.0-47.0); Hemoglobin 13.2 g/dL (12.0-15.0); Immature Granulocyte Absolute 0.02 K/mm3 (0.00-0.031); Immature Granulocyte Percent A 0.3 % (0-0.5); Lymphocytes Absolute Auto 2.41 K/mm3 (0.9-3.2); Lymphocytes Percent Auto 32.9 % (18.3-44.2); Mean Corpuscular HGB Conc 33.3 g/dl (32-36); Mean Corpuscular Hemoglobin 29.5 pg (26-34); Mean Corpuscular Volume 88.4 fl (80-100); Monocytes Absolute Auto 0.3 K/mm3 (0.1-0.6); Monocytes Percent Auto 4.4 % (2.6-8.5); Neutrophils Absolute Auto 4.3 K/mm3 (1.3-6.7); Neutrophils Percent Auto 58.1 % (45.5-73.1); Platelet Count Result 234 k/mm3 (150-375); Red Blood Count 4.48 M/mm3 (4.2-5.4); Red Cell Distribution Width 13.2 % (11.5-14.5); White Blood Count 7.3 K/mm3 (4.5-10.0)
[2024-05-08 17:46] LABS: Alanine Aminotransferase 19 U/L (6-35); Albumin Level 3.8 g/dL (3.5-5.1); Alkaline Phosphatase 61 U/L (38-126); Anion Gap 8 mmol/L (4-12); Aspartate Amino Transferase 21 U/L (14-36); Bilirubin,Total 0.5 mg/dL (0.2-1.3); Blood Urea Nitrogen 14 mg/dL (7-17); Calcium 8.6 mg/dL (8.4-10.2); Carbon Dioxide 25 mmol/L (22-30); Chloride 103 mmol/L (98-107); Estimated CRCL calculation 124 ml/min; Estimated Glomerular Filt Rate > 60; Glucose 104 mg/dL (65-110); Lipase 57 U/L (23-300); Sodium 136 mmol/L (137-145)
[2024-05-08 17:47] LABS: Prothrombin Time 13.9 Seconds (11.1-14.7)
[2024-05-08 17:58] LABS: Troponin I < 0.012 ng/mL (0.000-0.034)
[2024-05-08] MEDS: ASPIRIN 81 MG CHEWABLE TABLET 324 MG PO (18:08)
--- NOTE | 2024-05-08 20:37 | ECG_ITS ---
Test Date: 2024-05-08 20:50:52 Measurements Intervals [place] Rate: 72 P: 46 KS: 215 QRS: 43 QRSD: 98 T: 66 QT: 393 QTc: 433 Interpretive Statements SINUS RHYTHM WITH FIRST DEGREE AV BLOCK MODERATE ST DEPRESSION [0.05+ mV ST DEPRESSION] Compared to ECG 05/08/2024 17:22:28 First degree AV block now present ST (T wave) deviation now present Electronically Signed On 05-09-2024 11:53:32 DISTRICT MANAGER [employer] by Marixa Rogers
[2024-05-08 21:00] VITALS: BP 123/84; PULSE 65; O2SAT 99
[2024-05-08 21:18] LABS: Troponin I < 0.012 ng/mL (0.000-0.034)
[2024-05-08] MEDS: PANTOPRAZOLE SODIUM IV 40 MG VIAL IV PUSH (21:37)
[2024-05-08] MEDS: BELLADONNA ALK/PHENOB ELIX 10 ML, MAG HYDROX/ALUMINUM HYD/SIMETH 30 ML, LIDOCAINE 2% VI... PO (21:37)
[2024-05-08 21:45] VITALS: BP 119/75; PULSE 72; RESP 15; O2SAT 99
[2024-05-08 22:17] LABS: BEDSIDEPREGUCG Negative (Negative)
[2024-05-08 22:30] VITALS: BP 121/76; PULSE 86; O2SAT 99
[2024-05-08 23:15] VITALS: BP 111/73; PULSE 76; RESP 17; O2SAT 98
--- NOTE | 2024-05-08 23:18 | PC.NURSE ---
care and report given to COLLEEN Sorensen. all questions answered.
[2024-05-09] MEDS: KETOROLAC 15 MG/ML VIAL (*BKC) IV PUSH (00:44)
[2024-05-09 00:50] VITALS: BP 117/76; PULSE 76; RESP 16; O2SAT 98
--- OUTSIDE RECORDS SUMMARY | 2024-05-09 06:10 | XMS_ITS | Data Portability ---
Author Organization [place] [employer], Main Office Address [address] [place] [address] Care Team Providers Care Crop Puller Name Role Phone SHELLY GONZALES Primary Care Provider SHELLY GONZALES Referring Provider Assessment Encounter Date Assessment Date Assessment LastModified by Organization Details LastModified Time 02/14/2023 02/14/2023 HPI: 47-year-old female who came in today for evaluation of her left shoulder pain she has been having rather significant pain for the last 2 months. She thinks that prior to that she was having some degree of symptoms in the shoulder she is not sure how long. She just got done with a 2 week course of prednisone from her primary care doctor which did help a little bit with the pain in her shoulder but She is still miserable. She has tried xkvr-azx-cimqjw r anti-inflammato dez without any improvement of her symptoms. She recalls no injury trauma that started her pain. She has noticed a loss of range of motion in her right shoulder. She is not a diabetic. Physical exam: 47-year-old female she is 5 ft 6 and 261 lb. She has active elevation to 145 on the left external rotation 40 internal rotation is to L5. In comparison her right shoulder she elevates to 185 externally rotates to 100 and internally rotates to T10. She has excellent strength with external rotation as well as abduction in the left shoulder. No tenderness about the left shoulder. She is complaining of some tingling occasionally in the right hand. Range of motion is full without discomfort. Negative Spurling's maneuver today. 2+ radial pulse. Subscap lift-off is difficult but she does have the strength to do it on physical exam today. Impression: 47-year-old female who has a left frozen shoulder. Discussed etiology the frozen shoulder. I discussed treatment options including a fluoroscopic guided cortisone injection into the left glenohumeral joint and therapy about a week after the injection to help stretch out shoulder to get her full range of motion back pain. We will plan on setting this up for. We talked about anti-inflammato dez and she is declining any at this point. She does not feel it is helping. She is able to work and is tolerating the pain at this point. I will see her back in 5 weeks for re-evaluation. Not available 02/14/2023 16:42:27 03/28/2023 03/28/2023 HPI: Patient returns. She is here for follow-up of her left frozen shoulder. She had a cortisone injection under fluoroscopic guidance and has been going to physical therapy. She states the overall severe pain is gone and either still little bit of stiffness sensation left in the shoulder. It is overall very tolerable. She is still in therapy and continues with her home exercise program. Physical exam: Patient's left shoulder she has active elevation to 150 with some vzuk-un-eytmrqk e discomfort external rotation is still stiff at 60?? internal rotation is to L2 with some cytk-sq-cjfyewr e discomfort. She has excellent strength in abduction as well as external rotation in the left shoulder. There is no tenderness about shoulder. No numbness tingling the arm. Impression: Patient's left frozen shoulder is improving. She is going to continue with outpatient therapy at this point. I encouraged her to continue with her home exercise program and to work hard at getting her full range of motion back without pain. we talked about the fact that if she does not get her full motion back that the frozen shoulder can recur and she would have start this process over again. I recommended she work on her exercises in till her left shoulder moves as well as the right and also has no symptoms with motion and use. She understands. I will see her back as needed. 20 minutes was spent in treatment patient more than half of this in kyfy-yd-iqnx conversation Not available 03/28/2023 14:06:41 Plan of Treatment Reminders Order Date Submit Date Provider Last Modified By Organization Details Last Modified Time Details Appointments None recorded. Lab lipid panel, serum 2022 023 [email or web address] [facility] (Lab), [address] [place], [address], 3 09:20:18 HbA1c (hemoglobin A1c), blood 2022 023 [email or web address] 1 [facility] (Lab), [address] [place], [address], 3 09:19:48 CMP, serum or plasma 2022 023 [email or web address] 1 [facility] (Lab), [address] [place], [address], 3 09:19:48 Referral gynecologis t referral 2022 023 Florinda Ortiz MD, [address], [address], [place], [address], 3 17:14:42 orthopedic surgeon referral 2022 023 [email or web address] 3 [facility], [address], [place], [address], 3 07:55:36 Procedures None recorded. Surgeries None recorded. Imaging XR, shoulder 2022 023 [email or web address] [facility], [address], [place], [address], 3 16:45:16 Medication Orders prednisone 20 mg tablet 2022 023 [email or web address] [id number], [address], [place], [address], 3 15:10:56 hydrocodone 5 mg-acetamin ophen 325 mg tablet 2022 023 [id number], [address] [place], [address], 3 15:10:53 Patient TargetsNo targets recorded. Patient InstructionsNo instructions recorded. Reason for Referral Resident Service Coordinator Referral for Re ferral needed Referring Physician: Kimmy Melgoza, Family Medicine, Encounter Date: 10/25/2022 Orthopedic Surgeon Referral for Pain of left shoulder joint Referring Physician: Shelly Gonzales, Family Medicine, Encounter Date: 02/01/2023 Results Created Date Observation Date Name Description Value Unit Range Abnormal Flag Note LastModifiedBy Organization Detail LastModifiedTime 02/12/20 21 02/09/2021 , echo ardio gram No observ ation record ed. [id number] [facility] [address], [place], [address], 06/14/2022 23:09:29 02/29/20 21 02/17/2021 jacob r monit or No observ ation record ed. [id number] [facility] [address], [place], [address], 06/14/2022 23:09:29 02/15/20 23 XR, shoul vannessa No observ ation record ed. [facility] [address] [facility] [address], [place], [address], 02/14/2023 16:39:25 03/01/20 23 02/28/2023 inj large jnt hip knee shoul dr [facility]AJAS Y [facility] [address] [place] [address] Patien t Name: EUGENE LARA Access ion #: [id number] Sex: F : 1975 5 4 Locati on: RAD Attend ing Physic didier: CRISTHIAN JUNIOR Orderi ng Physic didier: CRISTHIAN JUNIOR Exam Date: 2022 10:13 AM Exam Name: XR INJ LG JNT HIP/KN EE/CELESTINA ULDR Admitt ing Diagno sis(es ): RADIOL OGY REPORT - FINAL EXAM: XR INJ LG JNT HIP/KN EE/CELESTINA ULDR HISTOR Y: LT FROZEN SHOULD ER 47-yea r-old female with left should er pain, frozen should er, limite d range of motion . COMPAR JOSE GUADALUPE: Left should er radiog raphs dated 2022. TECHNI QUE: PROCED URE: Left should er therap eutic inject ion. EXPLAN ATION: Risks and benefi ts of the proced ure were discus sed with the patien t, includ ing risks of bleedi ng, infect ion, and allerg ic reacti on. The patien t agreed to procee d and gave inform ed consen t. The skin of the left should er was marked with a marker , and the patien t agreed that this was the correc t should er. Time out was perfor med. The patien t was placed in supine positi on on the fluoro scopy table. The left Page 1 of 2 [facility] Name: EUGENE LARA Access ion #: [id number] Sex: F : 1975 5 4 Exam Date: 2022 10:13 AM Exam Name: XR INJ LG JNT HIP/KN EE/CELESTINA ULDR Admitt ing Diagno sis(es ): should er was evalua fercho fluoro scopic ally. The skin of the anteri or aspect of the left should er was preppe d and draped steril masoud with Chlora prep. The skin and subcut aneous tissue s were anesth etized with 1% lidoca ine withou t epinep hrine. A 22 gauge spinal needle was advanc ed under fluoro scopic guidan ce into the glenoh umeral joint. A test inject ion of Isovue [address] was used to confir m debim ent. A fluoro scopic spot film was obtain ed. The medica tions were then inject ed into the glenoh umeral joint. The needle was remove d. The skin was cleans ed, and a small bandag e was placed . The patien t tolera fercho the proced ure well, and there were no immedi ate compli cation s. Fluoro time: 0.2 minute s; DAP: 0.214 Gy.cm2 ; single fluoro scopic spot image was obtain ed. INJECT ATE: 80 mg Depo-M edrol and 4 ml 1% lidoca ine withou t epinep hrine. IMPRES ALONDRA: 1. Succes sful left should er therap eutic inject ion. 2. The patien t was instru cted to closel y monito r pain level for the next few hours to days. Create d and electr onical ly signed by: Zackary raphael MD Signed Date: 2022 2:35 PM (CT) Dictat ed by: Zackary raphael MD DD: 2022 2:35 PM (CT) DT: 2022 2:35 PM (CT) Page 2 of 2 [email or web address] [facility] (Imaging) [address] [place], [address], 03/05/2023 09:22:11 03/01/20 23 02/28/2023 XR, shoul vannessa No observ ation record ed. [email or web address] [facility] [address] [facility] [address], [place], [address], 08/24/2023 12:25:46 Result Notes None recorded. Problems Name Problem SNOMED Code Status Onset Date Resolution Date Notes Provider Name and Address Organization Details Recorded Time Transfusio n of blood product Active 2020 Not Available [facility] 4 01:44:25 Pain of left shoulder joint 3851859499366 9109 Active 2022 Not Available [facility] 4 01:44:25 Adhesive capsulitis of left shoulder 3238573305076 07 Active 2022 Not Available [facility] 4 01:44:25 Problem Notes None recorded. Procedures Surgical History Date Name Laterality Status Provider Name and Address Organization Details Recorded Time Genitourinary Surgery completed Not Available [facility] 06/14/2022 23:05:07 Gallbladder Surgery completed Not Available [facility] 06/14/2022 23:05:07 Imaging Results Imaging Date Name Status LastModified by Organization Details LastModified Time 02/09/2021 US, echocardiogram completed [id number] [id number] [facility] [address], [place], [address], 06/14/2022 23:09:29 02/17/2021 holter monitor completed [id number] [facility] [address], [place], [address], 06/14/2022 23:09:29 02/14/2023 XR, shoulder completed [facility] [address] [facility] [address], [place], [address], 02/14/2023 16:39:25 02/28/2023 inj large jnt hip knee shouldr completed [email or web address] [facility] ([facility]) [address] [place], [address], 03/05/2023 09:22:11 02/28/2023 XR, shoulder completed [email or web address] [facility] [address] [facility] [address], [place], [address], 08/24/2023 12:25:46 Procedure Notes None recorded. Medical Equipment None Reported. Allergies Allergen ID Allergen Name Allergen Category Reaction Reaction Severity Criticality Documentation Date Start Date Code Code System Note Provider Name and Address Organization Details Recorded Time No known allergy (situatio n) Not available Not available Not available Not available 12/08/2023 28850 6003 SNOMED Leidy Mota APRN [address] [facility], [facility] [address], [place], [address], [facility] [employer] 11:18:34 No known drug allergies Medications Name Sig Start Date Stop Date Status Note LastModified by Organization Details LastModified Time hydrocodone 5 mg-acetamin ophen 325 mg tablet TAKE 1 TABLET BY MOUTH EVERY 6 HOURS NEEDED 02/14 completed Not Available Not Available Not Available prednisone 20 mg tablet TAKE 3 TABS DAILY X3 DAYS, 2 TABS DAILY X3 DAYS, 1 TAB DAILY X3 DAYS, THEN 1/2 TAB DAILY X3 DAYS 02/14 completed Not Available Not Available Not Available Depo-Medrol 80 mg/mL suspension for injection 80 mg by injection route. 02/28 completed Not Available Not Available Not Available Xylocaine 10 mg/mL (1 %) injection solution 20 mL by injection route. 02/28 completed Not Available Not Available Not Available phenazopyri dine 100 mg tablet TAKE 2 TABLETS BY MOUTH 3 TIMES DAILY FOR 2 DAYS 02/01 completed Not Available Not Available Not Available cephalexin 500 mg capsule TAKE 1 CAPSULE BY MOUTH EVERY 6 HOURS FOR 10 DAYS 10/25 completed Not Available Not Available Not Available albuterol sulfate HFA 90 mcg/actuati on aerosol inhaler INHALE 2 PUFFS BY MOUTH EVERY 4 TO 6 HOURS NEEDED 10/25 completed Not Available Not Available Not Available Isovue-300 61 % intravenous solution 30 mL by intraven. route. 02/28 completed Not Available Not Available Not Available fluticasone propionate 50 mcg/actuati on nasal spray,suspe nsion SHAKE LIQUID AND USE 1 SPRAY IN EACH NOSTRIL EVERY DAY 10/25 completed Not Available Not Available Not Available amoxicillin 875 mg-potassiu m clavulanate 125 mg tablet TAKE 1 TABLET BY MOUTH EVERY 12 HOURS WITH MEALS FOR 7 DAYS 10/25 completed Not Available Not Available Not Available metoprolol tartrate 25 mg tablet 10/25 completed Not Available Not Available Not Available nitrofurant oin monohydrate /macrocryst als 100 mg capsule TAKE 1 CAPSULE BY MOUTH EVERY 12 HOURS FOR 10 DAYS 02/01 completed Not Available Not Available Not Available Multihance 529 mg/mL (0.1 mmol/0.2 mL) intravenous solution 15 mL by intraven. route. 02/28 completed Not Available Not Available Not Available Vitals Date Recorded Body mass index (BMI) Body height Body weight Provider Name and Address Organization Details Last Updated DateTime 02/04/2021 35.5 kg/m2 167.64 cm 72707.32 g Not Available [facility] 06/14/2022 23:05:18 Date Recorded Body weight Body temperature Heart rate Oxygen saturation Oxygen saturation in Arterial blood by Pulse oximetry Systolic blood pressure Diastolic blood pressure Provider Name and Address Organization Details Last Updated DateTime 3 224932. 05 g 97.6 [degF] 65 /min 98 % 98 % 126 mm[Hg] 68 mm[Hg] Emmanuelle Lara CMA [facility] [employer] [facility] 3 08:49:17 Date Recorded Body weight Body temperature Heart rate Oxygen saturation Oxygen saturation in Arterial blood by Pulse oximetry Systolic blood pressure Diastolic blood pressure Provider Name and Address Organization Details Last Updated DateTime 3 488267. 2 g 97.5 [degF] 83 /min 99 % 99 % 160 mm[Hg] 86 mm[Hg] Lainey Khanna RN [facility] [employer] 3 11:57:59 Date Recorded Body height Body mass index (BMI) Body weight Provider Name and Address Organization Details Last Updated DateTime 02/14/2023 167.64 cm 42.1 kg/m2 001974.61 g Caitie Monty ZENOBIAWolfgang PR [employer] [facility] [employer] 02/14/2023 15:14:54 Date Recorded Body height Provider Name an d Address Organization Details Last Updated DateTime 03/28/2023 167.64 cm Caitie Millan ZENOBIAWolfgang PR [employer] [facility] [employer] 03/28/2023 13:47:54 Social History Question Answer Notes LastModified by Organizat ion Details LastModified Time Tobacco Smoking Status Former Smoker quit 2016 Not Available [facility] 06/14/2022 23:04:37 What Is Your Level Of Alcohol Consumption? None [id number] Information not available 06/14/2022 Do You Wear A Helmet When Biking? Yes MIGRATION.[id number] 2307 Information not available 06/14/2022 What Is Your Level Of Caffeine Consumption? None MIGRATION.822441 2815 Information not available 06/14/2022 What Type Of Diet Are You Following? REGULAR MIGRATION.164418 6705 Information not available 06/14/2022 What Is The Highest Grade Or Level Of School You Have Completed Or The Highest Degree You Have Received? 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 No MIGRATION.008190 5472 Information not available 06/14/2022 Are There Any Guns Present In Your Home? No MIGRATION.505777 2947 Information not available 06/14/2022 What Was The Date Of Your Most Recent Tobacco Screening? 12/08/2020 MIGRATION.736519 2645 Information not available 06/14/2022 What Is Your Relationship Status? MIGRATION.040905 9365 Information not available 06/14/2022 Do You Use Your Seat Belt Or Car Seat Routinely? Yes MIGRATION.004349 9345 Information not available 06/14/2022 Do You Have Smoke And Carbon Monoxide Detectors In Your Home? Yes MIGRATION.996157 6529 Information not available 06/14/2022 Are You Passively Exposed To Smoke? No MIGRATION.158054 0468 Information not available 06/14/2022 Are There Any Smokers In Your House? No MIGRATION.766649 2794 Information not available 06/14/2022 Do You Participate In Social Media? No MIGRATION.907635 2878 Information not available 06/14/2022 Do You Feel Stressed (tense, Restless, Nervous, Or Anxious, Or Unable To Sleep At Night)? [id number] MIGRATION.665016 5475 Information not available 06/14/2022 Do You Use Any Illicit Or Recreational Drugs? No MIGRATION.754428 7403 Information not available 06/14/2022 Has Tobacco Cessation Counseling Been Provided? No MIGRATION.867055 0614 Information not available 06/14/2022 Are You Currently In School? No MIGRATION.278051 6737 Information not available 06/14/2022 Do You Have Any Dietary Restrictions? No MIGRATION.946853 7533 Information not available 06/14/2022 Do You Or Have You Ever Used Any Other Forms Of Tobacco Or Nicotine? No MIGRATION.176641 0172 Information not available 06/14/2022 Sex: Unknown Functional Status Question Answer Note LastModified by Organizat ion Details LastModified Time What is your exercise level? None [id number] Information not available 06/14/2022 Mental Status None recorded. Family History Relationship Description Onset Age of this Age Resolved Age Notes LastModified by Organization Details LastModified Time Mother Diabetes mellitus [id number] Not available 06/14/2022 23:05:08 Medical History Condition Response BLINDNESS N RHEUMATIC FEVER N KIDNEY STONES N BLADDER PROBLEMS N MRSA N OTHER # 1 N POLIO N LUNG DISEASE/DISORDER N HISTORY OF DRUG ABUSE N COPD N RADIATION / CHEMOTHERAPY N Other # 2 N BLOOD DISEASES N SURGERY N EAR OR HEARING PROBLEMS N MUMPS N SHINGLES N FEMALE PROBLEMS / INFECTIONS N DEPRESSION (INCLUDING POST ) N BOWEL PROBLEMS N STROKE/TIA N THYROID DISEASE N ULCERS N BENIGN PROSTATIC HYPERPLASIA N MEASLES N CERVICALGIA N HYPOTENSION N TB SKIN TEST N MYOCARDIAL INFARCTION N OBESITY N PARAPELGIA N GERD/NAUSEA N ANEURYSM N URINARY/BLADDER/KIDNEY PROBLEMS N CORONARY ARTERY DISEASE (CAD) N MENIERE'S DISEASE N ADDICTION CONCERNS N ENDOMETRIOSIS N USE OF BLOOD THINNERS N SKIN PROBLEMS N EMPHYSEMA N GASTROINTESTINAL DISORDER N MUSCLE,JOINT OR BONE PROBLEMS N GASTROINTESTINAL BLEEDING N BLOOD CLOTS N ASTHMA N CATARACTS N ERECTILE DYSFUNCTION N GI PROBLEMS N CHF N Low Testosterone N NEUROPATHY N INFERTILITY N AIDS/HIV N FRACTURES N CHEMOTHERAPY / RADIATION N VISION/EYE PROBLEMS N LIVER DISEASE N MALE HYPOGONADISM N HYPERTENSION N TOURETTE'S N ANXIETY DISORDER N BLOOD TRANSFUSION N ANEMIA/BLOOD DISORDER N CHRONIC EAR INFECTIONS N BRONCHITIS N TUBERCULOSIS N GLAUCOMA N FOOT PROBLEM N DIVERTICULITIS N SLEEP APNEA N CHICKENPOX N ALLERGIES/HAYFEVER N INFECTIOUS DISEASE N PROSTATE N HEART ARRHYTHMIA N INSOMNIA N HIGH CHOLESTEROL / HYPERLIPIDEMIA N EYE PROBLEMS N HYPERTHYROIDISM N EATING DISORDER N EDEMA N CHRONIC PAIN SYNDROME N CAROTID BLOCKAGE N CONSTIPATION N BACK / NECK PROBLEMS N HAVE YOU BEEN HOSPITALIZED OR SEEN IN [facility] IN THE PAST YEAR ? N ATHEROSCLEROSIS N BREAST PROBLEMS N DIALYSIS N ECZEMA N FIBROMYALGIA N OSTEOPOROSIS N ARTHRITIS N NO SIGNIFICANT PAST MEDICAL HISTORY N APPENDICITIS N DIABETES, TYPE N BAD TEETH N HEARTBURN / REFLUX N ADD/ADHD N AUTISM SPECTRUM DISORDER (ASD) N HEPATITIS / LIVER DISEASE N PULMONARY DISEASE N GOUT N SLEEP DISORDER N ALZHEIMER'S DISEASE N PAIN N DEMENTIA N HERPES N SEIZURES/EPILEPSY N HEADACHES/MIGRAINES N VASCULAR DISEASE N PACEMAKER N DIZZINESS N HEART DISEASE/HEART PROBLEMS N KIDNEY DISEASE N SCARLET FEVER N MULTIPLE SCLEROSIS N DEVELOPMENTAL OR BEHAVIORAL DISORDERS N MENTAL DISORDER/ILLNESS N CANCER: SPECIFY N CARDIAC ARRHYTHMIA N PNEUMONIA N ATRIAL FIBRILLATION N Gall Stones N PULMONARY EMBOLISM N AUTOIMMUNE DISEASE N Gynecological History Statement/Question Response Abnormal Pap N Flow Moderate Date of LMP 12/06/2020 Dislike of Light during Menstrual Headac he N Date of Last Pap 09/18/2018 Duration of Flow (days) 5 Age at Menarche 12 Current Control Method None Breast Problems NO How many live births 2 Date of Last Mammogram Menses Monthly Y Obstetrics History GPAL:G 2 P 2 0 0 2 Type Value Full Term 2 Living 2 Total 2 Past Encounters Encounter ID Performer Location Encounter Start Date Encounter Closed Date Diagnosis/Indication Diagnosis SNOMED-CT Code Diagnosis ICD10 Code Diagnosis Note [id number] [facility] Primary Care [facility] [address] [facility] [address] [place] [address] 12/08/2020 00:00:00 12/08/2020 16:23:15 [id number] [facility] [address] [facility] [address] [place] [address] 02/04/2021 00:00:00 02/04/2021 11:57:20 [id number] FAVIAN Huerta [facility] [address] [facility] [address] [place] [address] 10/25/2022 08:40:23 10/25/2022 09:21:52 Diabetes mellitus screening 555719641 Z13.1 Hyperlipid emia screening 471996883 Z13.220 Adult heal th examination 868120144 Z00.00 Will get routine labs today. Covid vaccines- recommende d boosterFlu vaccine- recommende d each fallTetanu s vaccine- up to date per patient; does not know date Pap-3-4 years wnl; will get establishe d with gynColonos copy- recommende dMammogram - 6-7 years ago wnl; recommende d Recommende d routine eye exams and dental cleanings. Referral needed [phone] Z76.89 She has had recurrent UTIs and vaginal dryness/it chiness that she never used to struggle with in the past. provider has recommende d she get establishe d with gynecology . [id number] Shelly Gonzales MD [facility] Primary Care [facility] [address] [facility] [address] [place] [address] 02/01/2023 11:45:10 02/01/2023 13:46:16 Pain of left shoulder joint 9503635578 1329086 M25.512 Heat, gentle stretching prednisone taper with food in AM, avoid other nsaidshydr ocodone/ap ap prn severe pain #20, use sparingly, do not take before driving/wo rkingortho referral given [id number] FAVIAN Cerna [facility] [address] [place] [address] 02/14/2023 14:55:00 02/14/2023 16:45:16 Pain of left shoulder joint 6154146036 [id number] M25.730 [id number] FAVIAN Cerna [facility] [address] [place] [address] 03/28/2023 13:38:46 03/28/2023 15:33:30 Adhesive capsulitis of left shoulder 0914422276 48772 M75.02 Health Concerns Section Related Observation LastModified by Organization Detai ls LastModified Time None Recorded Concern Status LastModified by Organization Details LastModified Time None Recorded Advance Directives Directive None Recorded Payers Encounter Date Sequence Insurance Name Policy Number Policy Benitez Covered Member ID Benitez Member ID Guarantor Name 10/25/2022 1 [place] [id number] Chelly Lara [id number] Chelly Lara 10/25/2022 2 [facility] [id number] Cristihan Lara [id number] Chelly Lara 02/01/2023 1 [place] [id number] Chelly Lara [id number] Chelly Kay Lara 02/01/2023 2 [facility] [id number] Cristhian Lara [id number] Chelly Kay Lara 02/14/2023 1 [place] [id number] Chelly Lara [id number] Chelly Kay Lara 02/14/2023 2 [facility] [id number] Cristhian Lara [id number] Chelly Kay Lara 03/28/2023 1 [place] [id number] 4 Chelly Lara [id number] Chelly Kay Lara 03/28/2023 2 [facility] [id number] Cristhian Lara [id number] Chelly Lara Notes Date Note Type Note Provider Name and Address Organization Details Recorded Time 10/25/2022 text/html Pt. here for linnette ual exam. Needs forms/labs completed for work screening. FAVIAN Huerta [address] [facility], [facility] [address], [place], [address], [facility] [employer] [facility] 10/25/2022 09:20:33 02/01/2023 text/html Left shoulder pa in x a few months. Has gotten progressively worse, it is radiating down arm with pain and numbness/tingling. 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 Her range of motion is severally decreased, she can't raise her arm above shoulder height, can't reach behind her. 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 Started out gradually, does not recall any injury or overuse. Ibuprofen did not help. Shelly Gonzales MD [address] [facility], [facility] [address], [place], [address], [employer] [facility] [employer] 02/01/2023 12:19:08 OBGyn Episode Ob Episode Information Episode Created Date Number of Fetuses Patient Bloodtype Patient rh Status Prepregnancy Weight lbs Domestic Partner Domestic Partner Phone Father Name Engineering Technologist Status 10/26/19 23 1 CLOSED Fetus Data First Name Last Name Admitted to NICU Weight (g) Sex Living Outcome Pediatric Complications Fetus ID Race Codes Race Delivery Type Full Term 362 Tk Calculation Initial Tk Date Initial Exam Date Initial Exam Provider Initial Ultrasound Date Last Menstrual Period Date Ultra Sound Weeks Gestation 0 Eighteen To Twenty Week Tk Update Ultra Sound Date Fundal Height At Umbil Quickening Date Ultra Sound Latest Weeks Gestation Final Tk Confirmed By Final Tk Confirmed Date Final Tk Date Ultra Sound Latest Days Gestation 0 0 Menstrual History Last Menstrual Date Menses Monthly On Bcp Conception Prior Menses Frequency Hcg Plus Date Menarche Onset Age Delivery Information Delivery Date Delivery Type Labor Anesthesia Weeks Gestation Incision Type Labor Labor Length Hrs Delivered By Post Complications Tubal Sterilization Discharge Date Comments 5 Discharge Information Feeding Method Contraceptive Method Maternal HG B and HCT Levels Ob Episode Information Episode Created Date Number of Fetuses Patient Bloodtype Patient rh Status Prepregnancy Weight lbs Domestic Partner Domestic Partner Phone Father Name Engineering Technologist Status 10/26/19 23 1 CLOSED Fetus Data First Name Last Name Admitted to NICU Weight (g) Sex Living Outcome Pediatric Complications Fetus ID Race Codes Race Delivery Type Full Term 361 Tk Calculation Initial Tk Date Initial Exam Date Initial Exam Provider Initial Ultrasound Date Last Menstrual Period Date Ultra Sound Weeks Gestation 0 Eighteen To Twenty Week Tk Update Ultra Sound Date Fundal Height At Umbil Quickening Date Ultra Sound Latest Weeks Gestation Final Tk Confirmed By Final Tk Confirmed Date Final Tk Date Ultra Sound Latest Days Gestation 0 0 Menstrual History Last Menstrual Date Menses Monthly On Bcp Conception Prior Menses Frequency Hcg Plus Date Menarche Onset Age Delivery Information Delivery Date Delivery Type Labor Anesthesia Weeks Gestation Incision Type Labor Labor Length Hrs Delivered By Post Complications Tubal Sterilization Discharge Date Comments 0 Discharge Information Feeding Method Contraceptive Method Maternal HG B and HCT Levels
== END 2024-05-09 00:51 | disposition home or self-care (01) ==
PROVIDERS: Emergency Medicine; Emergency Provider Emergency Medicine; PCP Clinical Nurse Specialist
DX: R07.89 Other chest pain (principal); Z87.891 Personal history of nicotine dependence
CPT/HCPCS: 36415; 71046; 71275; 74177; 80053; 81025; 83690; 84484; 85025; 85610; 85730; 93005; 96374; 96375; 96376; 99284; A9270; J1885; J2470; Q9967

== ENCOUNTER 2024-09-22 08:01 | Outpatient (CLI) | payer OTHER, SELFPAY ==
--- OUTSIDE RECORDS SUMMARY | 2024-09-22 08:05 | XMS_ITS | Data Portability ---
Author Organization [place] [facility] [employer], Main Office Address [address] [place] [address] Care Team Providers Care Investigations Chief Name Role Phone SHELLY GONZALES Primary Care Provider SHELLY GONZALES Referring Provider [phone] Assessment Encounter Date Assessment Date Assessment LastModified [...] She is still miserable. She has tried gbhv-ycj-aqrxku r anti-inflammato dez without any improvement of [...] has active elevation to 150 with some ldco-sm-yeycxja e discomfort external rotation is still stiff at 60 internal rotation is to L2 with some zdae-qu-jxtcowl e discomfort. She has excellent strength in [...] patient more than half of this in qipk-wo-lrey conversation Not available 03/28/2023 14:06:41 Plan of Treatment Reminders Order Date Submit Date Provider Last Modified By Organization Details Last Modified Time Details Appointments None recorded. Lab lipid panel, serum 2022 023 [email or web address] [facility] (Lab), [address] [place], [address], 3 09:20:18 HbA1c (hemoglobin A1c), blood 2022 023 1 [facility] ([facility]), [address] [place], [address], 3 09:19:48 CMP, serum or plasma 2022 023 1 [facility] ([facility]), [address] [place], [address], 3 09:19:48 Referral orthopedic surgeon referral 2022 023 [email or web address] 3 [facility], [address], [place], [address], 3 07:55:36 gynecologis t referral 2022 023 [email or web address] Florinda Ortiz MD, [address], [address], [place], [address], 3 17:14:42 Procedures None recorded. Surgeries None recorded. Imaging XR, shoulder 2022 023 [email or web address] [facility] [place], [address], [place], [address], 3 16:45:16 Medication Orders prednisone 20 mg tablet 2022 023 [email or web address] [id number], [address], [place], [address], 3 15:10:56 hydrocodone 5 mg-acetamin ophen 325 mg tablet 2022 023 [id number], [address], [place], [address], 3 15:10:53 Patient TargetsNo targets recorded. Patient InstructionsNo instructions recorded. 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 [id number] [facility] [address] , [place], [address], 06/14/2022 23:09:29 02/29/20 21 02/17/2021 jacob r monit or No observ ation record ed. [id number] [facility] [address] , [place], [address], 06/14/2022 23:09:29 02/15/20 23 XR, shoul vannessa No observ ation record ed. [facility] [place] [address] [facility] [address], [place], [address], 02/14/2023 16:39:25 03/01/20 23 02/28/2023 inj large jnt hip knee shoul dr BARAJAS Y [facility] [address] [place] [address] [phone] Patien t Name: EUGENE LARA Access ion #: [id number] Sex: F : 1975 5 4 [...] table. The left Page 1 of 2 [facility] Alfonso t Name: EUGENE LARA Access ion #: [id number] Sex: F : 1975 5 [address] [...] contra st was used to confir m chris ent. A fluoro scopic spot film was [...] 2:35 PM (CT) Page 2 of 2 [email or web address] [facility] ([facility]) [address] [place], [address], 03/05/2023 09:22:11 03/01/20 23 02/28/2023 XR, shoul vannessa No observ ation record ed. [email or web address] [facility] [place] [address] [facility] [address], [place], [address], 08/24/2023 12:25:46 Result Notes None recorded. Problems Name Problem SNOMED Code Status Onset Date Resolution Date Notes Provider Name and Address Organization Details Recorded Time Transfusio n of blood product Active 2020 Not Available [facility] 4 01:44:25 Pain of left shoulder joint 5481002063105 9109 Active 2022 Not Available [facility] 4 01:44:25 Adhesive capsulitis of left shoulder 9431483331387 07 Active 2022 Not Available [facility] 4 01:44:25 Problem Notes None recorded. Procedures Surgical History Date Name Laterality Status Provider Name and Address Organization Details Recorded Time Genitourinary Surgery completed Not Available [facility] 06/14/2022 23:05:07 Gallbladder Surgery completed Not Available [facility] 06/14/2022 23:05:07 Imaging Results None recorded. Procedure Notes None recorded. Medical Equipment None Reported. Allergies Allergen ID Allergen Name Allergen Category Reaction Reaction Severity Criticality Documentation Date Start Date Code Code System Note Provider Name and Address Organization Details Recorded Time No known allergy (situatio n) Not available Not available Not available Not available 12/08/2023 68995 6003 SNOMED Leidyjesse Mota, PLANNING AIDE [address] [facility], [address], [place], [address] , [facility] [employer] 11:18:34 No known drug allergies Medications Name [...] Available Not Available Vitals Date Recorded Body weight Body temperature Heart rate Oxygen saturation Oxygen saturation in Arterial blood by Pulse oximetry Systolic blood pressure Diastolic blood pressure Provider Name and Address Organization Details Last Updated DateTime 3 857071. 05 g 97.6 [degF] 65 /min 98 % 98 % 126 mm[Hg] 68 mm[Hg] Emmanuelle Lara CMA [employer] 3 08:49:17 Date Recorded Body weight Body temperature Heart rate Oxygen saturation Oxygen saturation in Arterial blood by Pulse oximetry Systolic blood pressure Diastolic blood pressure Provider Name and Address Organization Details Last Updated DateTime 3 196901. 2 g 97.5 [degF] 83 /min 99 % 99 % 160 mm[Hg] 86 mm[Hg] Lainey Khanna RN [employer] 3 11:57:59 Date Recorded Body mass index (BMI) Body height Body weight Provider Name and Address Organization Details Last Updated DateTime 02/04/2021 35.5 kg/m2 167.64 cm 97672.32 g Not Available [facility] 06/14/2022 23:05:18 Date Recorded Body height Body mass index (BMI) Body weight Provider Name and Address Organization Details Last Updated DateTime 02/14/2023 167.64 cm 42.1 kg/m2 898860.61 g RAY Ge [employer] 02/14/2023 15:14:54 Date Recorded Body height Provider Name an d Address Organization Details Last Updated DateTime 03/28/2023 167.64 cm RAY Ge [facility] 03/28/2023 13:47:54 Social History Question Answer Notes LastModified by [employer] Details LastModified Time Tobacco Smoking Status Former Smoker quit 2016 Not Available [facility] 06/14/2022 23:04:37 Do You Wear A Helmet When Biking? Yes [id number] Information not available 06/14/2022 What Is Your Level Of Caffeine Consumption? None MIGRATION.286317 7988 Information not available 06/14/2022 What Type Of Diet Are You Following? REGULAR MIGRATION.584889 2358 Information not available 06/14/2022 What Is The Highest Grade Or Level Of School You Have Completed Or The Highest Degree You Have Received? [id number] MIGRATION.524590 3913 Information not available 06/14/2022 Have There Been Any Changes To Your Family Or Social Situation? No MIGRATION.644059 9975 Information not available 06/14/2022 Are There Any Guns Present In Your Home? No MIGRATION.093182 3024 Information not available 06/14/2022 What Was The Date Of Your Most Recent Tobacco Screening? 12/08/2020 MIGRATION.881888 6200 Information not available 06/14/2022 What Is Your Relationship Status? MIGRATION.506191 0826 Information not available 06/14/2022 Do You Use Your Seat Belt Or Car Seat Routinely? Yes MIGRATION.403335 6496 Information not available 06/14/2022 Do You Have Smoke And Carbon Monoxide Detectors In Your Home? Yes MIGRATION.012128 9684 Information not available 06/14/2022 Are You Passively Exposed To Smoke? No MIGRATION.607480 2659 Information not available 06/14/2022 Are There Any Smokers In Your House? No MIGRATION.058527 3172 Information not available 06/14/2022 Do You Participate In Social Media? No MIGRATION.632721 1482 Information not available 06/14/2022 Has Tobacco Cessation Counseling Been Provided? No MIGRATION.313564 3987 Information not available 06/14/2022 Are You Currently In School? No MIGRATION.559929 7438 Information not available 06/14/2022 Do You Have Any Dietary Restrictions? No MIGRATION.206978 7851 Information not available 06/14/2022 Sex: Unknown Functional Status Question Answer Note LastModified by Organizat Mineralist Details LastModified Time Do you use any illicit or recreational drugs? No MIGRATION.5851832 026 Information not available 06/14/2022 Do you or have you ever used any other forms of tobacco or nicotine? No MIGRATION.6590291 026 Information not available 06/14/2022 What is your level of alcohol consumption? 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 None MIGRATION.0524593 026 Information not available 06/14/2022 Mental Status Question Answer Note LastModified by Organizat ion Details LastModified Time Do you feel stressed (tense, restless, nervous, or anxious, or unable to sleep at night)? [id number] MIGRATION.[id number] 6 Information not available 06/14/2022 Family History Relationship Description Onset Age of this Age Resolved Age Notes LastModified by Organization Details LastModified Time Mother Diabetes mellitus [id number] Not available 06/14/2022 23:05:08 Medical History Condition Response BLINDNESS N RHEUMATIC FEVER N KIDNEY STONES N BLADDER PROBLEMS N MRSA N OTHER # 1 N POLIO N LUNG DISEASE/DISORDER N HISTORY OF DRUG ABUSE N RADIATION / CHEMOTHERAPY N COPD N Other # 2 N BLOOD DISEASES N SURGERY N EAR OR HEARING PROBLEMS N MUMPS N SHINGLES N FEMALE PROBLEMS / INFECTIONS N BOWEL PROBLEMS N DEPRESSION (INCLUDING POST ) N STROKE/TIA N THYROID DISEASE N ULCERS N BENIGN PROSTATIC HYPERPLASIA N MEASLES N CERVICALGIA N TB SKIN TEST N HYPOTENSION N MYOCARDIAL INFARCTION N PARAP[place]IA N OBESITY N GERD/NAUSEA N ANEURYSM N URINARY/BLADDER/KIDNEY PROBLEMS [...] N EDEMA N CHRONIC PAIN SYNDROME N CONSTIPATION N CAROTID BLOCKAGE N BACK / NECK PROBLEMS N HAVE YOU BEEN HOSPITALIZED OR SEEN IN E ER IN THE PAST YEAR ? N ATHEROSCLEROSIS [...] SNOMED-CT Code Diagnosis ICD10 Code Diagnosis Note [id number] Shelly Gonzales MD [facility] Primary Care [address] [place] [address] 12/08/2020 00:00:00 12/08/2020 16:23:15 [id number] FAVIAN Huerta [facility] Primary Care [address] [place] [address] 02/04/2021 00:00:00 02/04/2021 11:57:20 [id number] Shelly Gonzales MD [facility] Primary Care [address] [place] [address] 10/25/2022 08:40:23 10/25/2022 09:21:52 Diabetes mellitus screening 819890982 Z13.1 Hyperlipid emia screening 294979857 Z13.220 Adult heal th examination 054367808 Z00.00 Will get routine labs today. Covid vaccines- recommende d boosterFlu vaccine- recommende d each fallTetanu s vaccine- up to date per patient; does not know date Pap-3-4 years wnl; will get establishe d with gynColonos copy- recommende dMammogram - 6-7 years ago wnl; recommende d Recommende d routine eye exams and dental cleanings. Referral needed [id number] Z76.89 She has had recurrent UTIs and vaginal dryness/it chiness that she never used to struggle with in the past. UC provider has recommende d she get establishe d with gynecology . [id number] Shelly Gonzales MD [facility] [address] [facility] [address] [place] [address] 02/01/2023 11:45:10 02/01/2023 13:46:16 Pain of left shoulder joint 7799234056 7571880 M25.512 Heat, gentle stretching prednisone taper with food in AM, avoid other nsaidshydr ocodone/ap ap prn severe pain #20, use sparingly, do not take before driving/wo rkingortho referral given [id number] Dong Vaughn MD [facility] [place] [address] [facility] [address] [place] [address] 02/14/2023 14:55:00 02/14/2023 16:45:16 Pain of left shoulder joint 0702220486 9077177 M25.051 [id number] Dong Vaughn MD [facility] [place] [address] [place] [address] 03/28/2023 13:38:46 03/28/2023 15:33:30 Adhesive capsulitis of left shoulder 9602812137 34839 M75.02 Health Concerns Section Related Observation LastModified by Organization Detai ls LastModified Time None Recorded Concern Status LastModified by Organization Details LastModified Time None Recorded Advance Directives Directive None Recorded Payers Encounter Date Sequence Insurance Name Policy Number Policy Benitez Covered Member ID Benitez Member ID Guarantor Name 10/25/2022 1 [employer] ([place]O) [id number] 4 Chelly Lara [id number] Chelly Lara 10/25/2022 2 [facility] [id number] Cristhian Lara [id number] Chelly Lara 02/01/2023 1 [place] [id number] 4 Chelly Lara [id number] Chelly Lara 02/01/2023 2 [facility] [id number] Cristhian Lara [id number] Chelly Kay Lara 02/14/2023 1 [place] [id number] 4 Chelly Lara [id number] Chelly Lara 02/14/2023 2 [facility] [id number] Cristhian Lara [id number] Chelly Lara 03/28/2023 1 [place] [id number] 4 Chelly Lara [id number] Chelly Lara 03/28/2023 2 [facility] [id number] Cristhian Lara [id number] Chelly Lara Notes Date Note Type Note Provider Name and Address Organization Details Recorded Time 10/25/2022 text/html Pt. here for linnette ua exam. Needs forms/labs completed for work screening. FAVIAN Huerta [address], [address], [place], [address], [employer] 10/25/2022 09:20:33 02/01/2023 text/html Left shoulder pa in x a few months. Has gotten progressively worse, it is radiating down arm with pain and numbness/tingling. Pain comes and goes, has some shooting/electrical pain, manugrapher strength is down. Her range of motion is severally decreased, she can't raise her arm above shoulder height, can't reach behind her. 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 Started out gradually, does not recall any injury or overuse. Ibuprofen did not help. 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
[2024-09-22 13:26] LABS: Basophils Absolute Auto 0.1 K/mm3 (0.0-0.1); Basophils Percent Auto 1.2 % (0.2-1.2); Eosinophils Absolute Auto 0.3 K/mm3 (0-0.3); Hematocrit 42.7 % (37.0-47.0); Hemoglobin 13.8 g/dL (12.0-15.0); Immature Granulocyte Absolute 0.01 K/mm3 (0.00-0.031); Immature Granulocyte Percent A 0.2 % (0-0.5); Lymphocytes Percent Auto 40.9 % (18.3-44.2); Mean Corpuscular HGB Conc 32.3 g/dl (32-36); Mean Corpuscular Hemoglobin 28.9 pg (26-34); Mean Corpuscular Volume 89.3 fl (80-100); Mean Platelet Volume 10.7 fl (7.4-10.4); Monocytes Absolute Auto 0.3 K/mm3 (0.1-0.6); Monocytes Percent Auto 5.7 % (2.6-8.5); Neutrophils Absolute Auto 2.4 K/mm3 (1.3-6.7); Platelet Count Result 255 k/mm3 (150-375); Red Blood Count 4.78 M/mm3 (4.2-5.4); Red Cell Distribution Width 13.1 % (11.5-14.5); White Blood Count 5.1 K/mm3 (4.5-10.0)
[2024-09-22 13:54] LABS: Vitamin D 25 Hydroxy 23.8 ng/mL
[2024-09-22 14:37] LABS: Hemoglobin A1C 4.9 % (<5.7)
[2024-09-22 15:28] LABS: Iron 69 ug/dL (37-170)
[2024-09-22 15:41] LABS: Percent Iron Saturation 21 % (20-50)
[2024-09-22 16:37] LABS: Alanine Aminotransferase 15 U/L (6-35); Albumin Level 4.3 g/dL (3.5-5.1); Alkaline Phosphatase 59 U/L (38-126); Anion Gap 8 mmol/L (4-12); Aspartate Amino Transferase 48 U/L (14-36); Bilirubin,Total 0.4 mg/dL (0.2-1.3); Blood Urea Nitrogen 6 mg/dL (7-17); Calcium 9.8 mg/dL (8.4-10.2); Carbon Dioxide 28 mmol/L (22-30); Chloride 102 mmol/L (98-107); Estimated Glomerular Filt Rate > 60; Glucose 89 mg/dL (65-110); Potassium 4.1 mmol/L (3.4-5.0); Sodium 138 mmol/L (137-145); Total Protein 7.5 g/dL (6.3-8.2)
[2024-09-23 06:18] LABS: FSH 11.1 mIU/mL; LH 31.6 mIU/mL; Prolactin 10.3 ng/mL
[2024-09-25 12:54] LABS: Testosterone Free 3.1 pg/mL (0.1-6.4); Testosterone Total 26 ng/dL (2-45)
== END 2024-09-22 08:02 | disposition home or self-care (01) ==
LOC: ANHGOSHLAB 08:02
PROVIDERS: PCP Clinical Nurse Specialist; Visit Provider Clinical Nurse Specialist
DX: E55.9 Vitamin D deficiency, unspecified (principal); N95.1 Menopausal and female climacteric states; F41.9 Anxiety disorder, unspecified; R73.01 Impaired fasting glucose; R53.83 Other fatigue
CPT/HCPCS: 36415; 80053; 82306; 82607; 82670; 82728; 83001; 83002; 83036; 83540; 83550; 84146; 84402; 84403; 84443; 85025